=== PATIENT | female | born 1985 | race Caucasian/White ===

== ENCOUNTER → 2017-09-28 | Outpatient (CLI) | payer BC, OTHER ==
[~2017-09-28] MED LIST: ALBUTEROL INHAL17 GM IH; AMBIEN 5 MG TABL5 M1 PO; ATIVAN1 MG PO; BELBUCA150 MCG BUCCAL; BENZTROPINE MES1 MG PO; BUPRENORPHINE HC2 MG SL; BUTORPHANOL; BUTRANS1 EAC1 TD; BUTRANS1 EAC1 TRANSDERM; CARISOPRODOL 3350 MG PO; CELEXA 20 MG TA20 MG PO; CLONAZEPAM 1 MG1 M1 PO; DULCOLAX STOOL100 M1 PO; FETZIMA20 MG PO; FLEXERIL PO; LINZESS145 MCG PO; MACROBID 100 M100 M1 PO; MAGNESIUM400 MG PO; MIGRANAL1 ML NS; MIRALAX17 GM PO; NOHOMEMEDICATIONS; NORCO 5-325 TA1 EACH PO; PERCOCET 5-3251 EACH PO; PRENATAL TABLE1 EACH PO; PROPRANOLOL 1010 M1 PO; PROZAC PO; PROZAC20 MG PO; PROZAC40 MG PO; RELPAX40 MG PO; RIZATRIPTAN5 MG PO; ROBAXIN500 MG PO; SAVELLA50 MG PO; SOMA250 MG PO; SYNTHROID150 MCG PO; TOPAMAX 100 MG100 MG NG; TRAMADOL 50 MG50 MG PO; TREXIMET 85-501 EACH PO; ZANAFLEX4 M1 PO; ZANAFLEX4 MG PO; ZANAFLEX6 MG PO; ZONISAMIDE 100100 M1 PO; [UNRECOGNIZED DRUG - REMARK]
--- NOTE | 2017-10-13 07:28 | PAINCON ---
[address] [address] PAIN MANAGEMENT CONSULTATION Name: GENESIS ARRIAZA Room: [facility] BETI Woodruff#: [id number] Admission: 09/28/17 Attend Phys: Juni Chatman DO Discharge: Date of : 89 Report #: [id number] THIS REPORT FOR: //name// CC: Nuzhat Chatman DATE OF SERVICE: 09/28/2017 CHIEF COMPLAINT: Headache pain, generalized body pain. HISTORY OF PRESENT ILLNESS: As you know, the patient is a 32-year-old female who returns today in followup visit with continued migraine headache pain and generalized body pain due to fibromyalgia. The patient and I have had discussions in the past about treatment options for her symptoms. We have placed the patient on a Butrans patch, which is the most effective and most appropriate treatment option for the patient's generalized pain and headache pain. We have been able to reduce the patient's headache pain to just infrequently with the Butrans patch. She returns today in followup visit reporting pain score of 4/10. She states that she is beginning to experience some generalized weakness that is subjective in nature. She indicates pain is well controlled with the Butrans, 80% improvement in overall pain. From a generalized body pain standpoint, she is only receiving 30% improvement. ALLERGIES: COMPAZINE, NONSTEROIDAL ANTI-INFLAMMATORIES. CURRENT MEDICATIONS: Butrans 10 mcg q. week, buprenorphine 2 mg 1 tab sublingual twice a day as needed for headache pain, clonazepam 1 mg p.o. at bedtime, levothyroxine 125 mcg per day, Savella 50 mg twice a day, vitamin 1 tab per day, Prozac 40 mg per day. SOCIAL HISTORY: The patient denies tobacco, alcohol, IV or illicit drug use. She is accompanied by her young child. IMAGING: No new imaging available. PHYSICAL EXAMINATION: VITAL SIGNS: Blood pressure 117/77, pulse 84, respiratory rate 16, unlabored. The patient is 98% on room air, current temperature 98.1 degrees Fahrenheit, height 5 feet 7 inches tall, weight 198.4 pounds, BMI calculated 31.1. GENERAL: Well-developed, well-nourished, well-hydrated 32-year-old female. She appears her stated age. She is placing current pain score at 4/10. HEENT: Normocephalic, atraumatic. Pupils equal, round, reactive to light. Extraocular muscles are intact. EXTREMITIES: Show no clubbing, no cyanosis, no edema. MUSCULOSKELETAL: The patient has 16 of 18 [place] [address] PAIN MANAGEMENT CONSULTATION Name: GENESIS ARRIAZA [id number] Admission: 09/28/17 Attend Phys: Juni Chatman DO Discharge: Date of : 87 Report #: [id number] myofascial pain syndrome such as fibromyalgia. She reports no pain with standing from a seated position. She has a normal range of motion of the upper and lower extremities. ASSESSMENT: 1. Chronic migraine headaches. 2. Fibromyalgia. 3. Chronic intractable pain. PLAN: 1. The patient returns today in followup visit reporting generalized weakness that is perception only in nature. I was unable to elicit any weakness in the upper extremities or lower extremities. Her strength is equal, symmetrical and 5/5. I believe her symptoms are related to her generalized pain syndrome, fibromyalgia and this is not an atypical finding for fibromyalgia patients. There is likely also some depression the patient has been experiencing, which compounds the problem. We have discussed this with the patient today. It is noted that the patient has been restarted on Prozac. This may need to be escalated further to assist in this condition of depression, generalized depression and fibromyalgia pain. 2. In regards to the patient's migraine headache pain, the Butrans patch appears to be working well. We utilized the patch as it provides good benefit long-term, 24-hour day, 7-day a week coverage. This also has low side effect profile of respiratory depression, dysphoric effects as well as constipation issues. She is doing very well on the medication, reporting 80% improvement in overall headache pain. Recommend continuation of the Butrans patch for this visit. 3. The patient will submit random drug screen today. This is part of our monitoring program. The patient has signed an opioid contract with [facility] for the continuation of medication. As part of our monitoring, we have the patients undergo random drug screens. The patient will submit to this drug screening today. She reports no potential aberrancy on today's test. The patient can contact our clinic in approximately 2 weeks for the findings of the exam. If aberrancy is noted, the patient will recontact to return to discuss the findings. 4. The patient was provided prescription of Butrans 10 mcg patch 1 patch per week. She was given #4 patches releases of today, 4 weeks from today, 8 weeks from today. 5. The patient was provided a prescription of buprenorphine 2 mg dose 1 tab p.o. b.i.d., given #60, 2 refills. 6. The patient was provided a refill prescription of clonazepam 1 mg dose 1 tab p.o. at bedtime, #30, 2 refills. I did advise the patient that clonazepam is not a pain medication. This will need to be provided through her PCP. This was added specifically for issues of insomnia. When we initially saw the patient, this is not a medication that we will continue [place] [address] PAIN MANAGEMENT CONSULTATION Name: GENESIS ARRIAZA Room: [facility] BETI Kacy#: [id number] Admission: 09/28/17 Attend Phys: Juni Chatman DO Discharge: Date of : 89 Report #: [id number] will need to be provided through her psychiatrist, sleep specialist or her PCP. 7. We will see the patient back in followup visit in 3 months. <ELECTRONICALLY SIGNED> By: Juni Chatman DO 10/13/17 0728 [id number] Chatman DO /nt
== END ==
LOC: M.PC 00:55
DX: G43.909 Migraine, unspecified, not intractable, without status migrainosus (principal); M79.7 Fibromyalgia; G89.29 Other chronic pain

== ENCOUNTER → 2017-11-03 | Outpatient (CLI) | payer BC, OTHER ==
--- NOTE | 2017-11-11 14:44 | PAINCON ---
[address] [address] PAIN MANAGEMENT CONSULTATION Name: GENESIS ARRIAZA Room: [facility] BETI Kacy#: [id number] Admission: 11/03/17 Attend Phys: Sandoval Cisneros MD Discharge: Date of : 89 Report #: [id number] THIS REPORT FOR: //name// CC: Nuzhat Cisneros DATE OF SERVICE: 11/03/2017 FOLLOWUP HISTORY: Continued headache pain and I would like to have my medications renewed. HISTORY: The patient is a 32-year-old female who has been followed in the Pain Clinic since 07/[address] Juni Chatman. She returns today for renewal of her medications. She has been told by her insurance company that they denied continued use of Butrans. As you recall, she suffers from significant headaches. Has found that the Butrans medication has been about 80% helpful in curving these headaches. She has been on this medication for about the last 3 weeks. She has had some discomfort in the low back, knees and feet. She has been experiencing some burning sensation in her feet. Has felt a bruising sensation somewhat globally. Rates her pain as a 6/10. This is my first visit with the patient. As you are aware, she has had some problem with migraine type headaches for quite a number of years. She has been evaluated by numerous specialists to deal with her chronic headache pain. They have included Neurology, Endocrinology, HEALTH INFORMATION SYSTEMS TECHNICIAN physicians, none of which have found a significant etiology for her headache. She has had Botox injections, trigger point injections, tried the triptans and a number of antidepressants. Neurology has performed EKG, which did show some pseudoseizure activity, but this apparently was after her symptoms had begun. She notes that the pain is exacerbated with stress, use of alcohol and jaw clenching activities. Continue to describe her pain and discomfort as continuous, constant and was generally a 5-6/10 most of the time. She was placed on Butrans and noted improvement in her headache pains. Things are going reasonably well until her insurance company recently told her that Butrans was not an option. She would like to consider other options to continue to help with pain control. ALLERGIES: COMPAZINE, ERYTHROMYCIN, NONSTEROIDAL ANTI-INFLAMMATORY MEDICATIONS. CURRENT MEDICATIONS: Buprenorphine patch 1 weekly 10 mcg transdermal, clonazepam 1 mg daily, Prozac 20 mg total of 40 mg daily, Synthroid 1.25 mcg daily, milnacipran/Savella 50 mg b.i.d., and vitamins. PAST MEDICAL HISTORY: [place] [address] PAIN MANAGEMENT CONSULTATION Name: GENESIS ARRIAZA [facility] [id number] Admission: 11/03/17 Attend Phys: Sandoval Cisneros MD Discharge: Date of : 87 Report #: [id number] 1. Pseudoseizures 2. Asthma. 3. Multiple emotional problems. 4. Migraine headaches. PAST SURGICAL HISTORY: Shoulder surgery in 2013. SOCIAL HISTORY: Denies use of tobacco. Denies use of alcoholic beverages. Denies use of IV or illicit drugs. The patient states that she is a nurse. REVIEW OF SYSTEMS: Fatigue, weakness, chronic headaches, asthma, pseudoseizure activity, numbness and tingling, head injury, depression, insomnia. PAIN CLINIC ASSESSMENT: 1. The patient is not being treated for osteoarthritis or rheumatoid arthritis. Height 5 feet 7 inches, weight 188 pounds, BMI is 29. 2. VITAL SIGNS: Blood pressure 142/75, heart rate 75, respiratory rate 16, room air saturation 92%, and temperature 98.1. Pain intensity rated as 6/10. 3. Fall risk. The patient has not fallen in the last 3 months. 4. Blood thinners. The patient is not on a blood thinning medication. 5. Hypertension. The patient is not being treated for hypertension. 6. Pain impact score 32/70. 7. Functional assessment tool. 8. Recreational drugs. The patient denies use of recreational drugs. 9. Tobacco. The patient denies use of tobacco. 10. Alcohol. The patient does not use alcohol on a regular basis. PHYSICAL EXAMINATION: GENERAL: The patient is a well-developed white female, appears in no distress. APPEARANCE: Appears her stated age. ORIENTATION: The patient is alert and oriented x 3. AFFECT: Affect appears appropriate. HEENT: Normocephalic and atraumatic with extraocular eye muscles intact. No reasonable hearing. No nasal complaints. Buccal membranes moist. NECK: Without any JVD or adenopathy. LUNGS: Clear to auscultation. HEART: Regular rate. ABDOMEN: Nontender. MUSCULOSKELETAL: Normal alignment without significant scoliosis, kyphosis, or lordosis. Gait is within normal limits. The patient does complain of some low back pain and discomfort with paraspinous muscles discomfort. Muscles in the upper extremities are judged to be 5/5 without complaints of neuromuscular deficits or radicular components. Lower extremity muscle strength is judged to be 5/5 in the lower extremities without significant complaints of neurological deficits. The patient complains of some discomfort in the knees. Feels that there is a [place] [address] PAIN MANAGEMENT CONSULTATION Name: GENESIS ARRIAZA [facility] [id number] Admission: 11/03/17 Attend Phys: Sandoval Cisneros MD Discharge: Date of : 89 Report #: [id number] IMPRESSION: 1. Chronic migraine headaches. 2. Fibromyalgia. 3. Chronic intractable pain. RECOMMENDATION: The patient states that her insurance company has indicated Butrans is no longer an option that she should try their formulary option, which is Belbuca. We spoke with Dr. Chatman. He has known the patient best. We will try Belbuca 10 mcg applied to the skin every 7 days and note its efficacy. She will call us if she has any problems with this medication. We have reviewed the patient's past history. We are aware that she has tried multiple options to help curb her chronic pain involving her headaches as well as some fibromyalgia. She has tried treatment with Botox, other modalities, endocrinologic evaluation, has seen a number of physicians in private practice here in [place] and has continued to have some headache problems. Dr. Chatman had suggested the possibility of being evaluated by the [facility] in [place] or the [facility]. It appears that the patient has been doing reasonably well on her current regimen. Hopefully, the change in her medications, which is required by her insurance company will not worsen her pain condition. She will try the new pain medication. Hopefully, she will find this medication is equally as effective if not more effective. She will call us if she has any concerns in regards to this new medication. We would like to thank you for letting us participate in her care. We hope she continues to improve. <ELECTRONICALLY SIGNED> By: Sandoval Cisneros MD 11/11/17 1444 [id number] 21N. Christopher Cisneros MD /nt
== END ==
LOC: M.PC 01:48
DX: G43.909 Migraine, unspecified, not intractable, without status migrainosus (principal); G89.4 Chronic pain syndrome; M79.7 Fibromyalgia

== ENCOUNTER → 2017-12-22 | Outpatient (CLI) | payer BC, OTHER ==
--- NOTE | 2017-12-30 08:18 | PAINCON ---
[place] [address] PAIN MANAGEMENT CONSULTATION Name: GENESIS ARRIAZA Room: [facility] OrquideaJennifer#: [id number] Admission: 12/22/17 Attend Phys: Sandoval Cisneros MD Discharge: Date of : 87 Report #: [id number] THIS REPORT FOR: //name// CC: YENIFER Ashraf DATE OF SERVICE: 12/22/2017 FOLLOWUP COMPLAINT: "Here for medication renewal. The Belbuca medicine caused me to be nauseated, vomit, diarrhea, and 10 pounds weight loss." FOLLOWUP HISTORY: The patient is a 32-year-old female who has been followed in the pain clinic because of chronic migraine headaches. She has used buprenorphine sublingual tablets 2 mg 1 p.o. b.i.d. She found that this medication was quite helpful. Her insurance company required use of Belbuca medication instead. She has been unable to tolerate this medication. She has been experiencing nausea and vomiting, muscle cramps, and diarrhea. In spite of trying this medication for the last month, she finds that it is intolerable. She continues to note low back pain, knee pain, as well as pain in her feet. She does not feel that the Belbuca medication has been efficacious. She would like to resume the use of buprenorphine 2 mg sublingual tabs. ALLERGIES: COMPAZINE, ERYTHROMYCIN, NONSTEROIDAL ANTI-INFLAMMATORY medications. CURRENT MEDICATIONS: Clonazepam 1 mg daily, Prozac 20 mg total of 40 mg daily, Synthroid 1.25 mcg daily, milnacipran/Savella 50 mg b.i.d., vitamins, Belbuca 150 mcg sublingual q. 12 hours p.r.n. pain. PAIN CLINIC ASSESSMENT: 1. The patient is not being treated for osteoarthritis or rheumatoid arthritis. 2. Height 5 feet 7 inches, weight 178 pounds, down 10 pounds from 188 pounds at the last visit. BMI is 27.9. 3. Vital signs: Blood pressure 122/67, heart rate 80, respiratory rate 16, room air saturation 98%, temperature 97.6. 4. Pain intensity: Pain intensity is rated as 6/10. 5. Fall risk: The patient has not fallen in the last 3 months. 6. Blood thinner. The patient is not on a blood thinner. 7. Hypertension. The patient is not being treated for hypertension. 8. Pain impact score: 32/70 showing moderate problems with pain with activities of daily living. 9. Functional assessment tool. 10. Recreational drugs: The patient denies use of recreational drugs. 11. Tobacco: The patient denies use of tobacco. 12. Alcohol: The patient denies use of alcoholic [place] [address] PAIN MANAGEMENT CONSULTATION Name: GENESIS ARRIAZA Room: [facility]#: [id number] Admission: 12/22/17 Attend Phys: Sandoval Cisneros MD Discharge: Date of : 87 Report #: [id number] PHYSICAL EXAMINATION: GENERAL: The patient is a well-developed white female. She appears her stated age. She is not in distress. She is alert and oriented x 3. Affect is appropriate. Speech is fluent. She has her 6-month-old baby with her. HEENT: Normocephalic, atraumatic. Extraocular eye muscles intact. Normal hearing. Nasal mucosa moist. Sclerae nonicteric. NECK: Without JVD or adenopathy. Good range of motion. LUNGS: Clear to auscultation without rales or rhonchi. HEART: Regular rate, normal S1, S2. ABDOMEN: Nontender. MUSCULOSKELETAL: Normal alignment without significant scoliosis, kyphosis, or lordosis. Gait is within normal limits. The patient does complain of some low back pain and discomfort in the paraspinous muscle areas. Muscles in the upper extremities are judged to be 5/5 without complaint or neuromuscular deficits. Lower extremity muscle strength is judged to be 5/5 in lower extremities without significant complaints or neurologic deficits. The patient complains of some discomfort in her knees. She feels that there is a burning component in her feet. ASSESSMENT: 1. Chronic migraine headaches. 2. Fibromyalgia. 3. Chronic intractable pain. RECOMMENDATIONS: We discussed the options with the patient. She tried the option provided by her insurance company Belbuca 150 mcg sublingual q. 12 hours. The patient found that this medication was quite problematic. She experienced nausea, vomiting, cramping of muscles, diarrhea, and problems with sleeping. She has lost 10 pounds weight as a result of this medication. She feels that the previous medication of buprenorphine 2 mg sublingual was much more efficacious. She would like to resume this medication. She has found the other medication intolerable. We will rewrite a script for buprenorphine 2 mg sublingual b.i.d. to help control her pain. She will call us if she has any problems with her medications. We would like to thank you for letting us participate in her care. We hope she continues to improve.. <ELECTRONICALLY SIGNED> By: Sandoval Cisneros MD 12/30/17 0818 1422 [id number]. MD JARAD Rojas
== END ==
LOC: M.PC 02:02
DX: G43.809 Other migraine, not intractable, without status migrainosus (principal); M79.7 Fibromyalgia; G89.4 Chronic pain syndrome; I10 Essential (primary) hypertension

== ENCOUNTER → 2018-01-19 | Outpatient (CLI) | payer BC, OTHER ==
--- NOTE | 2018-02-10 14:05 | PAINCON ---
[address] [address] PAIN MANAGEMENT CONSULTATION Name: GENESIS ARRIAZA Room: [facility] MtJenniferYuridiaJennifer#: [id number] Admission: 01/19/18 Attend Phys: Sandoval Cisneros MD Discharge: Date of : 87 Report #: [id number] THIS REPORT FOR: //name// CC: Nuzhat Cisneros DATE OF SERVICE: 01/19/2018 FOLLOWUP COMPLAINT: Pain in the low back, knees, feet and hips. FOLLOWUP HISTORY: The patient is a 33-year-old female who has been followed in the Pain Clinic because of chronic migraine headaches. She also has had some problems with her low back and hips. She rates her pain as a 6/10 at this juncture. She was provided Medrol Dosepak since we saw her last. She has taken that but still continues to have some pain. She has been seen in the Emergency Room; she was seen on 01/10/2018. She stated that some x-rays were performed. [place] to be muscle strain or flare-up of scoliosis. The patient was provided with some muscle relaxants and Naprosyn. She notes that activities, cold temperatures and walking can exacerbate her discomfort. Pain improves with rest, heat, cold, and stretching. ALLERGIES: COMPAZINE, ERYTHROMYCIN, HIGH DOSES OF NON-STEROIDAL ANTI-INFLAMMATORY MEDICATIONS. CURRENT MEDICATIONS: Buprenorphine 2 mg sublingual t.i.d., clonazepam 1 mg, Flexeril 10 mg t.i.d., levothyroxine 0.125 mg, vitamins. PAIN CLINIC ASSESSMENT: 1. The patient is not being treated for osteoarthritis or rheumatoid arthritis. 2. Height 5 feet 7 inches, weight 180 pounds, BMI is 28.1. 3. Vital signs: Blood pressure 106/65, heart rate 63, respiratory rate 18, room air saturation 98%, temperature 98. 4. Pain intensity: Rated as 6/10. 5. Fall risk: The patient has not fallen in the last 3 months. 6. Blood thinner: The patient is not on a blood thinner. 7. Hypertension. The patient is not being treated for hypertension. 8. Pain impact score 32/70, showing moderate problems with pain involving activities of daily living. 9. Functional assessment tool. 10. Recreational drug use: The patient denies use of recreational drugs. 11. Tobacco: The patient denies use of tobacco. 12. Alcohol: The patient denies use of alcoholic beverages on a regular basis. PHYSICAL EXAMINATION: GENERAL: The patient is a well-developed, well-nourished white female, [place] [address] PAIN MANAGEMENT CONSULTATION Name: GENESIS ARRIAZA [facility] [id number] Admission: 01/19/18 Attend Phys: Sandoval Cisneros MD Discharge: Date of : 89 Report #: [id number] her stated age. She is alert and oriented x 3. She has her infant with her. Affect is appropriate. Speech is fluent. HEENT: Normocephalic, atraumatic. Extraocular eye muscles intact. Sclerae nonicteric. Hearing is within normal limits. NECK: Without JVD or adenopathy. Good range of motion. LUNGS: Clear to auscultation, without rales or rhonchi. HEART: Regular rate. Normal S1, S2. ABDOMEN: Nontender, without organomegaly. MUSCULOSKELETAL: Normal alignment, without significant scoliosis, kyphosis, or lordosis. The patient's gait is within normal limits. She does complain of some pain and discomfort in the lower portion of her back, in the paraspinous muscles area. Muscle strength in the upper extremities judged to be 5/5 as well as in the lower extremities 5/5, without significant neurological deficits. IMPRESSION: 1. Chronic migraine headaches. 2. Fibromyalgia. 3. Chronic intractable pain. RECOMMENDATIONS: We discussed treatment options with the patient. At this juncture, we will increase the patient's buprenorphine from 2 mg b.i.d. to 3 mg sublingual. Also, the patient has been given a script for Flexeril two tablets 10 mg in the a.m., one tablet midday, one tablet at bedtime, and clonazepam 1 mg p.o. at bedtime. The patient will continue with these medications. Hopefully, she will note a decrease in pain and discomfort. She will follow up in the future as needed. We would like to thank you for letting us participate in her care. We hope she continues to improve. <ELECTRONICALLY SIGNED> By: Sandoval Cisneros MD 02/10/18 1405 1307 1331N. Christopher Cisneros MD /kamaljit
== END ==
LOC: M.PC 02:08
DX: G43.709 Chronic migraine without aura, not intractable, without status migrainosus (principal); G89.4 Chronic pain syndrome; M79.7 Fibromyalgia

== ENCOUNTER → 2018-02-16 | Outpatient (CLI) | payer BC, OTHER ==
--- NOTE | 2018-02-25 15:18 | PAINCON ---
[address] [address] PAIN MANAGEMENT CONSULTATION Name: GENESIS ARRIAZA Room: [facility] MtCarlito#: [id number] Admission: 02/16/18 Attend Phys: Sandoval Cisneros MD Discharge: Date of : 89 Report #: [id number] THIS REPORT FOR: //name// CC: Nuzhat Cisneros DATE OF SERVICE: 02/16/2018 FOLLOWUP COMPLAINT: Medicine is working okay. FOLLOWUP HISTORY: The patient is a 33-year-old female who has been followed in the pain clinic. She has chronic pain involving her low back, knees, feet and hips. This has been problematic for years. She finds that her medications are working reasonably well. She does not have any problems with the medications. Overall, she thinks that things are working reasonably well. Has had no new problems. Feels that the Flexeril continues to be helpful. Has a young baby. Things are going reasonably well from that vantage point as well. As you recall, she has had some problems with chronic migraine headaches. Rates her pain as a 6/10 today. The activities that exacerbate her pain or cold weather, walking, bending holding the car seat. Things that improve with her use of her medications heat/cold, rest as well as stretching exercises. ALLERGIES: COMPAZINE, ERYTHROMYCIN, HIGH DOSES OF NONSTEROIDAL ANTI-INFLAMMATORY MEDICATIONS. MEDICATIONS: Buprenorphine 2 mg sublingual t.i.d., clonazepam 1 mg, Flexeril 10 mg t.i.d., levothyroxine 0.125 mg, vitamins. PAIN CLINIC ASSESSMENT: 1. The patient is not being treated for rheumatoid or osteoarthritis. 2. Height 5 feet 7 inches, weight 176 pounds, BMI is 27.7. 3. Vital Signs: Blood pressure is 93/53, heart rate 77, respiratory rate 16, room air saturation is 97, temperature 98.2. 4. Pain intensity 02/07. 5. Fall risk. The patient has not fallen in the last 3 months. 6. Blood thinner. The patient is not on a blood thinning medication. 7. Hypertension. The patient has not been treated for hypertension. 8. Pain impact score 32/70 showing moderate problems with pain involving activities of daily living. 9. Functional assessment tool. 10. Recreational drug use. The patient denies use of recreational drugs. 11. Tobacco: The patient denies use of tobacco. 12. Alcohol: The patient denies use of alcoholic beverages on a regular basis. PHYSICAL EXAMINATION: [place] [address] PAIN MANAGEMENT CONSULTATION Name: GENESIS ARRIAZA Brenda Room: [facility]#: [id number] Admission: 02/16/18 Attend Phys: Sandoval Cisneros MD Discharge: Date of : 89 Report #: [id number] GENERAL: The patient is a well-developed white female, appears her stated age. She is alert and oriented x 3. Her infant is in with her. Good interaction is noted. Affect is appropriate. Speech is fluent. HEENT: Normocephalic, atraumatic. Extraocular eye muscles intact. Sclerae nonicteric. Hearing within normal limits. NECK: Without JVD or adenopathy. Good range of motion. HEART: Regular rate. S1, S2. ABDOMEN: Nontender, without organomegaly. MUSCULOSKELETAL: Without significant scoliosis, kyphosis or lordosis. The patient's gait is within normal limits. Does complain of some pain and discomfort in the lower back in the paraspinous areas. Muscle strength in the upper body appears to be 5/5 as well as in the lower extremity 5/5 without neurologic deficits. IMPRESSION: 1. Chronic migraine headaches. 2. Fibromyalgia. 3. Chronic intractable pain. 4. Sore mouth secondary to laser surgery on her gums. RECOMMENDATIONS: We discussed treatment options with the patient and her use of medications. Overall, things seemed to be going reasonably well. She has had some increased pain and discomfort secondary to laser surgery on her gums. She feels that her medications are working well. She would like to have been continued. Keeps her medications in a guarded area. Does not have any problems with her ability to function and care for her baby. We would like to thank you for letting us participate in her care. A script for her medications of clonazepam 1 mg, buprenorphine 2 mg sublingual t.i.d. has been written as well as continued use of Flexeril 10 mg 1 p.o. midday and bedtime and 2 tablets q.a.m. <ELECTRONICALLY SIGNED> By: Sandoval Cisneros MD 02/25/18 1518 1611 2002Sandoval Cisneros MD /WENDY
== END ==
LOC: M.PC 02:47
DX: G43.909 Migraine, unspecified, not intractable, without status migrainosus (principal); M79.7 Fibromyalgia; G89.4 Chronic pain syndrome

== ENCOUNTER 2018-03-15 14:54 | Emergency (ER) | payer BC, OTHER ==
[~2018-03-15] VITALS: Ht 170.2 cm; Wt 77.1 kg
[~2018-03-15 14:54] MED LIST changes: -DULCOLAX STOOL100 M1 PO; -LINZESS145 MCG PO; -MAGNESIUM400 MG PO; -ROBAXIN500 MG PO; -ZANAFLEX4 MG PO
[2018-03-15] MEDS ORDERED: ROBAXIN500 MG PO (15:54)
[2018-03-15 16:00] VITALS: BP 122/74
[2018-04-15] MEDS ORDERED: CLONAZEPAM 1 MG1 M1 PO (10:51)
[2018-04-15] MEDS ORDERED: ROBAXIN500 MG PO (10:51)
[2018-04-15] MEDS ORDERED: BUPRENORPHINE HC2 MG SL (10:51)
[2018-04-15] MEDS ORDERED: FLEXERIL PO ×2 (11:16→11:17)
[2018-05-13] MEDS ORDERED: CLONAZEPAM 1 MG1 M1 PO (08:18)
[2018-05-13] MEDS ORDERED: BUPRENORPHINE HC2 MG SL (08:18)
[2018-05-13] MEDS ORDERED: FLEXERIL PO (08:18)
[2018-06-10] MEDS ORDERED: BUPRENORPHINE HC2 MG SL (08:14)
[2018-06-10] MEDS ORDERED: CLONAZEPAM 1 MG1 M1 PO (08:14)
[2018-06-10] MEDS ORDERED: FLEXERIL PO (08:14)
[2018-07-08] MEDS ORDERED: FLEXERIL PO (09:08)
[2018-07-08] MEDS ORDERED: CLONAZEPAM 1 MG1 M1 PO (09:08)
[2018-07-08] MEDS ORDERED: BUPRENORPHINE HC2 MG SL (09:08)
[2018-07-08] MEDS ORDERED: MAGNESIUM400 MG PO (09:55)
[2018-07-08] MEDS ORDERED: DULCOLAX STOOL100 M1 PO ×2 (10:14→10:17)
[2018-07-08] MEDS ORDERED: ZANAFLEX4 MG PO ×2 (10:14→10:17)
[2018-07-08] MEDS ORDERED: MIRALAX17 GM PO ×2 (10:14→10:17)
[2018-07-08] MEDS ORDERED: LINZESS145 MCG PO ×2 (10:22→10:23)
== END 2018-03-15 16:08 | disposition home or self-care (01) ==
LOC: M.ERS 14:54
DX: S46.912A Strain of unspecified muscle, fascia and tendon at shoulder and upper arm level, left arm, initial encounter (principal); G43.909 Migraine, unspecified, not intractable, without status migrainosus; J45.909 Unspecified asthma, uncomplicated; F17.210 Nicotine dependence, cigarettes, uncomplicated; Z88.1 Allergy status to other antibiotic agents; Z88.5 Allergy status to narcotic agent; W01.0XXA Fall on same level from slipping, tripping and stumbling without subsequent striking against object, initial encounter; Y93.89 Activity, other specified; Y92.89 Other specified places as the place of occurrence of the external cause; Y99.8 Other external cause status

== ENCOUNTER → 2018-04-15 | Outpatient (CLI) | payer BC, OTHER ==
[~2018-04-15] MED LIST changes: +DULCOLAX STOOL100 M1 PO; +LINZESS145 MCG PO; +MAGNESIUM400 MG PO; +ROBAXIN500 MG PO; +ZANAFLEX4 MG PO
--- NOTE | 2018-04-16 08:37 | PAINCON ---
[facility] [address] [place] [address] PAIN MANAGEMENT CONSULTATION Name: GENESIS ARRIAZA Room: [facility] URIAH MtCarlito#: [id number] Admission: 04/15/18 Attend Phys: Sandoval Cisneros MD Discharge: Date of : 89 Report #: [id number] THIS REPORT FOR: //name// CC: JAYLYN physician/PCP Nuzhat Cisneros DATE OF SERVICE: 04/15/2018 FOLLOWUP COMPLAINT: "Here for medication renewal. I am having pain in the middle of my back." FOLLOWUP HISTORY: The patient is a 33-year-old female who has been followed in the Pain Clinic because of chronic pain involving her back, knees, feet, and hips. She has noticed some increased pain in her midback area. It is more intense in the area of her bra. Certain activities exacerbate her pain. She states that she has taken a Medrol Dosepak in the past, but still has had some remnants of pain and discomfort, which is problematic. She feels that the pain is a 7/10. She was seen in the Emergency Room at [facility] about 5 weeks ago. She is prescribed some Flexeril, but did not notice a significant improvement and relief from that medication. She feels that the buprenorphine t.i.d. is helpful. She has noted constant problems with constipation. She feels that she has a good bowel movement about once a week. She states that she has been taking a number of medications that have been recommended, which include stool softeners, has used Ex-Lax. At this juncture, she would like to proceed with an injection to the mid portion of her back. These are the areas that are most problematic. She has not had back surgery. She does not note any real changes in her back because of activity. She has not had a trauma to the back. ALLERGIES: COMPAZINE, ERYTHROMYCIN, HIGH DOSES OF NONSTEROIDAL ANTI-INFLAMMATORY MEDICATIONS. CURRENT MEDICATIONS: Buprenorphine 2 mg sublingual t.i.d., clonazepam ____ mg, Flexeril 10 mg t.i.d., levothyroxine 0.125 mg, vitamins. PAIN CLINIC ASSESSMENT: 1. The patient is not being treated for osteoarthritis or rheumatoid arthritis. 2. Height 5 feet 7 inches, weight 177 pounds, BMI is 27.8. 3. Vital signs: Blood pressure 122/58, heart rate 102, respiratory rate 18, room air saturation 98%, temperature 98.4. Pain intensity scale 7/10. 4. Fall risk. The patient has not fallen in the last 3 months. 5. Blood thinner. The patient is not on a blood thinning medication. 6. Hypertension. The patient is not being treated for hypertension. 7. Opioid therapy. The patient receives her medications from one source, the Pain Clinic. 8. [place] [address] PAIN MANAGEMENT CONSULTATION Name: GENESIS ARRIAZA [id number] Admission: 04/15/18 Attend Phys: Sandoval Cisneros MD Discharge: Date of : 87 Report #: [id number] 9. Functional assessment tool. 10. Recreational drug use: The patient denies. 11. Tobacco: The patient denies use of tobacco. 12. Alcohol: Occasional alcohol use. PHYSICAL EXAMINATION: GENERAL: The patient is a well-developed, well-nourished white female. She appears her stated age. She is alert and oriented x 3. She has fluent speech. Affect is appropriate. HEENT: Normocephalic, atraumatic. Extraocular muscles intact. Sclerae nonicteric. Hearing within normal limits. Mucous membranes are moist. NECK: Without JVD or adenopathy. Good range of motion. HEART: Regular rate. S1, S2. ABDOMEN: Nontender. BACK: Has some discomfort in the midback area in the area of the proximally T7/T8 as well as T11/T10. These areas are more problematic and tender to palpation and increased pain is noted with movement. NEUROLOGICAL: Upper extremity muscle strength is judged to be 5/5 for the major muscle groups. Lower body muscle strength is 5/5 without neurological deficits. IMPRESSION: 1. Chronic headache pain with migraines. 2. Fibromyalgia. 3. Myofascial pain. 4. Worsening of back pain. 5. Constipation, chronic. RECOMMENDATIONS: We discussed treatment options with the patient. The patient will be given a trial of Movantik. Hopefully, she would find that this medication will be helpful in decreasing the amount of constipation she is experiencing. The patient would also like to proceed with a trigger point injection in the affected areas in her midback. A renewal of her medications has been written. She will call us if she has any problems with the Movantik. The patient elected to proceed with the injection into the trigger point areas. PROCEDURE NOTE: The patient was taken to the examination area. She is helped on the examination table. The patient sat perpendicular to the table. A chair was placed under her feet. She was leaning forward as though she was going to tie her shoes. Palpation in the area of her bra line, T7-T8 was palpated. This reproduced pain and discomfort. A 25-gauge needle was then advanced into the area of the interspinous ligament area and paraspinous muscles at this level. Total of 10 mL of 0.5% bupivacaine and 40 mg triamcinolone was injected. The patient notices that triggerpoint improved. The patient had T10/T11 palpation reproduced a trigger point. A 25-gauge needle was then advanced into the area of discomfort. In this area, a total of 40 mg triamcinolone and 5 mL of 0.5% bupivacaine was injected. The patient tolerated the [place] [address] PAIN MANAGEMENT CONSULTATION Name: GENESIS ARRIAZA Room: [facility]#: [id number] Admission: 04/15/18 Attend Phys: Sandoval Cisneros MD Discharge: Date of : 87 Report #: [id number] no complications. She remained in the Pain Clinic for appropriate amount of time. She will follow up in the future as needed. We would like to thank you for letting us participate in her care. We hope she continues to improve. <ELECTRONICALLY SIGNED> By: Sandoval Cisneros MD 04/16/18 0837 1159 1659N. Christopher Cisneros MD /nt
== END | disposition home or self-care (01) ==
LOC: M.PC 04:59
DX: M79.1 Myalgia (principal); G43.909 Migraine, unspecified, not intractable, without status migrainosus; G89.29 Other chronic pain; M54.5 Low back pain; K59.09 Other constipation; Z88.8 Allergy status to other drugs, medicaments and biological substances; Z79.899 Other long term (current) drug therapy; Z98.890 Other specified postprocedural states

== ENCOUNTER → 2018-05-13 | Outpatient (CLI) | payer BC, OTHER ==
--- NOTE | 2018-06-14 10:30 | PAINCON ---
[facility] [address] [place] [address] PAIN MANAGEMENT CONSULTATION Name: GENESIS ARRIAZA Room: [facility] MtCarlito#: [id number] Admission: 05/13/18 Attend Phys: Sandoval Cisneros MD Discharge: Date of : 89 Report #: [id number] THIS REPORT FOR: //name// CC: Nuzhat Cisneros DATE OF SERVICE: 05/13/2018 FOLLOWUP HISTORY: Here for medication renewal. The medication is still helping. I am still having constipation. FOLLOWUP HISTORY: The patient is a 33-year-old female who has been followed in the pain clinic because of chronic low back, knee, hip, and foot pain. She was given Movantik. It was felt that the initial use of the Movantik was helpful. She had more normal bowel movement. She did not notice continued bowel movements after that. She is not sure. She has changed her diet somewhat in an effort to promote more easy motility. She would like to try the Movantik medication again. She feels that the Robaxin, Flexeril, clonazepam, and buprenorphine continue to be helpful. She has not had back surgery. Has not noted any change in her back secondary to activity or trauma. ALLERGIES: COMPAZINE, ERYTHROMYCIN, AND HIGH DOSE OF NONSTEROIDAL ANTI-INFLAMMATORY MEDICATION. CURRENT MEDICATIONS: Buprenorphine 2 mg sublingual t.i.d., clonazepam 1 mg at bedtime, Flexeril 10 mg t.i.d., levothyroxine 0.125 mg, and multiple vitamins. PAIN CLINIC ASSESSMENT: 1. The patient is not being treated for osteoarthritis or rheumatoid arthritis. 2. Height 5 feet 7 inches, weight 175 pounds, BMI is 27.8. 3. Vital signs: Blood pressure 109/68, heart rate 96, respiratory rate 16, room air saturation 92, temperature 97.7. 4. Pain intensity 11/07. 5. Opioid therapy. The patient receives her medication from 1 source. 6. Blood thinner. The patient is not on a blood thinning medication. 7. Risk assessment tool. 8. Functional assessment tool. 9. Recreational drug use. The patient denies use of recreational drugs. 10. Tobacco: The patient denies use of tobacco. 11. Alcohol: The patient occasionally uses alcoholic beverages. PHYSICAL EXAMINATION: GENERAL: The patient is well-developed, well-nourished white female. She appears her stated age. She is alert and oriented x 3. [place] [address] PAIN MANAGEMENT CONSULTATION Name: GENESIS ARRIAZA Room: [facility]#: [id number] Admission: 05/13/18 Attend Phys: Sandoval Cisneros MD Discharge: Date of : 89 Report #: [id number] daughter of about 6 months is with her. HEENT: Normocephalic, atraumatic. Extraocular eye muscles intact. Sclerae nonicteric. Mucous membranes are moist. NECK: Without JVD or adenopathy. Good range of motion. HEART: Regular rate. S1, S2. ABDOMEN: Nontender, without organomegaly. BACK: Has some discomfort in the mid back area approximately at the T7/T8 area as well as T10/T11. There is some tenderness to palpation in these areas. NEUROLOGIC: Upper extremity muscle strength is judged to be 5/5 for the major muscle groups. Lower body muscle strength is judged to be 5/5 without deficits. ASSESSMENT: Chronic headaches with migraines, fibromyalgia, myofascial pain, chronic back pain, and chronic constipation. RECOMMENDATIONS: We discussed treatment options with the patient. At this juncture, the patient feels that the Movantik initially was helpful. She ran out. She would like to give another trial of this medication. We will give her additional set of 6 pills. Hopefully, she finds that this medication is helpful. States that she is changing her diet in an effort to promote better GI motility. She would like to continue with her medications and has not had any side effects. She will follow up in the near future. We would like to thank you for letting us participate in her care. Should she find that the Movantik medication is helpful, we will then call in a script to the pharmacy. <ELECTRONICALLY SIGNED> By: Sandoval Cisneros MD 06/14/18 1030 0926 1248N. Christopher Cisneros MD /[facility]
== END ==
LOC: M.PC 03:54
DX: G43.909 Migraine, unspecified, not intractable, without status migrainosus (principal); M79.7 Fibromyalgia; K59.00 Constipation, unspecified; G89.29 Other chronic pain; M54.5 Low back pain; Z79.899 Other long term (current) drug therapy

== ENCOUNTER → 2018-06-10 | Outpatient (CLI) | payer OTHER ==
--- NOTE | 2018-06-14 10:00 | PAINCON ---
[address] [address] PAIN MANAGEMENT CONSULTATION Name: GENESIS ARRIAZA [id number] Admission: 06/10/18 Attend Phys: Sandoval Cisneros MD Discharge: Date of : 89 Report #: [id number] THIS REPORT FOR: //name// CC: Nuzhat Cisneros DATE OF SERVICE: 06/10/2018 PRIMARY CARE PHYSICIAN: Nuzhat Willoughby N.P. FOLLOWUP COMPLAINT: Here for renewal of medication. HISTORY OF PRESENT ILLNESS: The patient is a 33-year-old female who has been followed in the pain clinic because of chronic pain involving her back, hips, knees and foot pain. She finds that use of her medications cause significant amounts of constipation. She did use Movantik. She found that this medication was quite beneficial. States that she has been taking about 8 other medications for bowel movement, which has been significantly reduced with use of Movantik. She continues to have some leg cramps. Rates her pain as a 4/10. Denies any new trauma. Continues to find buprenorphine helpful. Feels overall that she is about 70% improved with use of her medications. ALLERGIES: COMPAZINE, ERYTHROMYCIN, HIGH DOSE OF NONSTEROIDAL ANTI-INFLAMMATORY MEDICATIONS. CURRENT MEDICATIONS: Buprenorphine 2 mg sublingual t.i.d., clonazepam 1 mg at bedtime, Flexeril 10 mg t.i.d., levothyroxine 0.125 mg, multivitamins. PAIN CLINIC ASSESSMENT AND PQRS: 1. The patient is not being treated for osteoarthritis or rheumatoid arthritis. 2. Height 5 feet 7 inches, weight 169 pounds, BMI is 27.0. 3. Vital signs: Blood pressure 110/80, heart rate 102, respiratory rate 16, room air saturation 97%, temperature 98.4. 4. Pain intensity: 4/10. 5. Fall history: The patient has not fallen in the last 3 months. 6. Blood thinner. The patient is not on a blood thinning medication. 7. Hypertension. The patient is not being treated for hypertension. 8. Opioids greater than 6 weeks. The patient gets her medication from one source, the pain clinic. 9. Risk assessment tool. 10. Functional assessment tool. 11. Recreational drug use. The patient denies use of recreational drugs. 12. Alcohol: The patient denies use of alcoholic beverages. PHYSICAL EXAMINATION: [address] [place] [address] PAIN MANAGEMENT CONSULTATION Name: RACHID ARRIAZAMARYANN Gutierrez Room: [facility]#: [id number] Admission: 06/10/18 Attend Phys: Sandoval Cisneros MD Discharge: Date of : 89 Report #: [id number] GENERAL: The patient is a well-developed, well-nourished, white female. Appears her stated age. She is alert and oriented x 3. Her speech is fluent. HEENT: Normocephalic, atraumatic. Extraocular eye muscles intact. Sclerae nonicteric. Mucous membranes are moist. NECK: Without adenopathy or JVD. HEART: Regular rate. S1, S2. ABDOMEN: Nontender, without organomegaly. BACK: With some discomfort in approximately T7/T8 areas as well as some T10/T11 areas. Notes some palpation in this area can increase her discomfort. NEUROLOGIC: Upper extremity muscle strength is judged to be 5/5. Lower extremity muscle strength 5/5 without deficits. ASSESSMENT: 1. Chronic headaches. 2. Fibromyalgia. 3. Myofascial pain. 4. Chronic back pain. 5. Chronic constipation, improve with Movantik. RECOMMENDATIONS: We discussed treatment options with the patient. At this juncture, we will continue with her current medical regimen. The patient finds that the Movantik has been quite beneficial. She is somewhat discombobulated of the cost of medication. It is about $400 a month. At this juncture, she is unable to cover that. She would like to have her medications of clonazepam, buprenorphine and Flexeril renewed. A script for these medications have been written. We would like to thank you for letting us participate in her care. We hope she continues to improve. <ELECTRONICALLY SIGNED> By: Sandoval Cisneros MD 06/14/18 1000 [id number]. Christopher Cisneros MD /[facility]
== END ==
LOC: M.PC 05:16
DX: G89.29 Other chronic pain (principal); R51 Headache; M79.7 Fibromyalgia; K59.09 Other constipation; Z79.899 Other long term (current) drug therapy

== ENCOUNTER → 2018-07-08 | Outpatient (CLI) | payer OTHER ==
--- NOTE | ~2018-07-08 | PAINCON ---
[place] [address] PAIN MANAGEMENT CONSULTATION Name: GENESIS ARRIAZA [facility] [id number] Admission: 07/08/18 Attend Phys: Sandoval Cisneros MD Discharge: Date of : 89 Report #: [id number] THIS REPORT FOR: //name// CC: Nuzhat Cisneros DATE OF SERVICE: 07/08/2018 PRIMARY CARE PHYSICIAN: Nuzhat Willoughby NP FOLLOWUP HISTORY: Here for medications. HISTORY: The patient is a 33-year-old female who has been followed in the pain clinic because of chronic pain involving her back, hips, knees and foot. She continues to have problems with cramping in her back, hips, and knees. She did find that Movantik was helpful in decreasing the amount of problem she is having with constipation. Finds the medication is too expensive at this juncture given her lack of insurance coverage for this medication. Feels that another muscle relaxant other than Flexeril might be helpful. She is not having any complications from her medications. She feels that the Butrans is still helpful. Feels that she is about 80% improvement. ALLERGIES: COMPAZINE, ERYTHROMYCIN, HIGH DOSE NONSTEROIDAL ANTI-INFLAMMATORY MEDICATIONS. CURRENT MEDICATIONS: Buprenorphine 2 mg sublingual t.i.d., clonazepam 1 mg at bedtime, Flexeril 10 mg t.i.d., levothyroxine 0.125 mg, multivitamins. PAIN CLINIC ASSESSMENT/PQRS: 1. The patient is not being treated for osteoarthritis or rheumatoid arthritis. 2. Height 5 feet 7 inches, weight 166 pounds, BMI is 26. 3. Vital signs: Blood pressure 123/74, heart rate 75, respiratory rate 16, room air saturation is 100%, temperature 98.3. 4. Pain intensity. The patient rates her pain as a 2/10. 5. Fall history: The patient has not fallen in the last 3 months. 6. Blood thinner. The patient is not on a blood thinning medication. 7. Hypertension. The patient is not being treated for hypertension. 8. Opioids greater than 6 weeks. The patient receives her medications from one source, the pain clinic. 9. Risk assessment tool, low for opioids. 10. Functional assessment tool. 11. Recreational drug use. The patient denies use of recreational drugs. 12. Alcohol: The patient denies use of alcoholic beverages. PHYSICAL EXAMINATION: GENERAL: The patient is a well-developed, well-[place] [address] PAIN MANAGEMENT CONSULTATION Name: GENESIS ARRIAZA Room: [facility]#: [id number] Admission: 07/08/18 Attend Phys: Sandoval Cisneros MD Discharge: Date of : 89 Report #: [id number] her stated age. She is alert and oriented x 3. Her affect is appropriate. Speech is fluent. HEENT: Normocephalic, atraumatic. Extraocular eye muscles intact. Sclerae nonicteric. Mucous membranes are moist. NECK: Without adenopathy or JVD. HEART: Regular rate. S1, S2. ABDOMEN: Nontender, without organomegaly. Bowel sounds present. BACK: The patient complains of some discomfort in the T7/T8 area as well as some discomfort in T10/T11 areas. NEUROLOGIC: Upper extremity muscle strength is judged to be 5/5 for the major muscle groups. Lower extremity muscle strength is judged to be 5/5 without deficits. ASSESSMENT: 1. Chronic headaches. 2. Fibromyalgia. 3. Myofascial pain. 4. Chronic back pain. 5. Chronic constipation. RECOMMENDATIONS: We discussed treatment options with the patient. At this juncture, we will continue with her clonazepam 1 mg p.o. at bedtime, buprenorphine 2 mg tablet sublingual t.i.d. The patient will also continue with Flexeril 10 mg 2 tablets one tablet at noon and one tablet at bedtime. She will call us if she has any problems with her medications. She will also continue to take and maintain a diet that decreases constipation. I would like to thank you for letting us participate in her care. We hope she continues to improve. By: [id number]. Christopher Cisneros MD /WEND[facility]
== END ==
LOC: M.PC 05:08
DX: R51 Headache (principal); G89.29 Other chronic pain; M79.7 Fibromyalgia; K59.09 Other constipation; Z79.899 Other long term (current) drug therapy

== ENCOUNTER → 2018-08-05 | Outpatient (CLI) | payer OTHER ==
[~2018-08-05] MED LIST changes: +LORZONE750 MG PO; +ZANAFLEX2 MG PO
--- NOTE | 2018-08-06 17:20 | PAINCON ---
[address] [address] PAIN MANAGEMENT CONSULTATION Name: GENESIS ARRIAZA Room: [facility] Kacy#: [id number] Admission: 08/05/18 Attend Phys: Sandoval Cisneros MD Discharge: Date of : 89 Report #: [id number] THIS REPORT FOR: //name// CC: Nuzhat Cisneros DATE OF SERVICE: 08/05/2018 FOLLOWUP HISTORY: The patient is a 33-year-old female who has been followed in the Pain Clinic because of pain involving her back, hips, knees and foot. She continues to note pain and cramping sensation in her back and has pain, cramping, which is most problematic along her hips. Also, has some discomfort in her knees. Feels that the spasticity that the spasms in her leg are quite problematic. She has tried a number of medications in the past. She does not feel that the Flexeril medication is very helpful. Did try tizanidine. Noted that medication made her quite sedate. He is not sure that baclofen was very beneficial in the past. We have discussed the possibility of another medication to help with the spasms. ALLERGIES: COMPAZINE, ERYTHROMYCIN, HIGH DOSE NONSTEROIDAL ANTI-INFLAMMATORY MEDICATIONS. CURRENT MEDICATIONS: Buprenorphine 2 mg sublingual t.i.d., clonazepam 1 mg at bedtime, Flexeril was used and it has been discontinued, levothyroxine 0.125 mg, multivitamins. PAIN CLINIC ASSESSMENT/PQRS: 1. The patient is not being treated for osteoarthritis or rheumatoid arthritis. 2. Height 5 feet 7 inches, weight 159 pounds, BMI is 25. 3. Vital signs: Blood pressure 141/83, heart rate 124, respiratory rate 16, room air saturation is 95%, temperature 97.8. 4. Pain intensity 4/10. 5. Fall history: The patient has not fallen in the last 3 months. 6. Blood thinner. The patient is not on a blood thinning medication. 7. Hypertension. The patient has not been treated for hypertension. 8. Opiates greater than 6 weeks. The patient is getting her medication from [facility], the pain clinic. 9. Risk assessment tool, low for opioid use. 10. Functional assessment tool. 11. Recurrent recreational drug use. The patient denies use of recreational drugs. 12. Alcohol: The patient denies use of alcoholic beverages. PHYSICAL EXAMINATION: GENERAL: The patient is a well-developed, well-nourished white female. Appears her stated age. She is alert and oriented x 3. [place] [address] PAIN MANAGEMENT CONSULTATION Name: GENESIS ARRIAZA Room: [facility]#: [id number] Admission: 08/05/18 Attend Phys: Sandoval Cisneros MD Discharge: Date of : 89 Report #: [id number] Speech is fluent. HEENT: Normocephalic, atraumatic. Extraocular eye muscles intact. Her daughter is with her. NECK: Without adenopathy or JVD. HEART: Regular rate. S1, S2. ABDOMEN: Nontender, without organomegaly. Bowel sounds present. BACK: The patient complains of some pain and discomfort in the T7/T8 area as well as some discomfort in the T10-T11 area. Upper extremity muscle strength is judged to be 5/5 for the major muscle groups. Muscle strength to the lower extremity judged to be 5/5 without deficits. IMPRESSION: 1. Chronic headaches. 2. Fibromyalgia. 3. Myofascial pain. 4. Chronic back pain. 5. Chronic constipation. RECOMMENDATIONS: We discussed treatment options with the patient. At this juncture, she continues to have pain, which is causing cramping on the lateral portion of her thighs and down into her left leg. We will try another muscle relaxant. The patient will take chlorzoxazone 750 mg tablets 1 p.o. t.i.d. and noticed efficacy. She will call us if she has any concerns. She will stop taking the medication if she finds that it is problematic. We would like to thank you for letting us participate in her care. We hope she continues to improve. <ELECTRONICALLY SIGNED> By: Sandoval Cisneros MD 08/06/18 1720 [id number]. Christopher Cisneros MD /nt
== END ==
LOC: M.PC 04:39
DX: R51 Headache (principal); M54.5 Low back pain; G89.29 Other chronic pain; M79.7 Fibromyalgia; K59.09 Other constipation

== ENCOUNTER → 2018-09-02 | Outpatient (CLI) | payer OTHER ==
[~2018-09-02] MED LIST changes: +HYDROCODON-ACE1 EAC7 PO
--- NOTE | ~2018-09-02 | PAINCON ---
[address] [address] PAIN MANAGEMENT CONSULTATION Name: GENESIS ARRIAZA Room: [facility] [place].#: [id number] Admission: Attend Phys: Sandoval Cisneros MD Discharge: Date of : 89 Report #: [id number] THIS REPORT FOR: //name// CC: Nuzhat Cisneros DATE OF SERVICE: 09/02/2018 CHIEF COMPLAINT: Lumbar radicular pain. FOLLOWUP HISTORY: The patient is a 33-year-old female who has been followed in the Pain Clinic in the past because of chronic pain. She returns today indicating that her pain continues to be problematic. She is having pain and discomfort, which is radiating down in the posterior portion of her left leg with numbness and tingling in the L5-S1 distribution. She would like to proceed with an epidural steroid injection today to help quell the pain and discomfort, which she has been experiencing. As you may recall, she has quite a complicated history. She has used a number of medications to help with pain. They are not as effective as she would like for them to have. She states that she had used Vicoprofen in the past and that was helpful. She has been using buprenorphine. This medication has been causing some problems with nausea and vomiting. She was provided with chlorzoxazone form of a muscle relaxant. It was felt that medication was quite problematic and it made her very sleepy. She had used Flexeril in the past and feels that she would like to use that medication over the chlorzoxazone. She has used Butrans in the past. At this juncture, her insurance has denied use of that medication and she is unable to afford it. We have discussed problems with opioid use and their ability to be helpful initially, but can quickly become less beneficial secondary to development of tolerance. We also discussed the possibility of dependence on opioid medications. Overall, she feels that things are going somewhat poorly with her pain control and she would like to try hydrocodone. ALLERGIES: COMPAZINE, ERYTHROMYCIN, HIGH DOSE NONSTEROIDAL ANTI-INFLAMMATORY MEDICATIONS. CURRENT MEDICATIONS: Buprenorphine 2 mg sublingual t.i.d., clonazepam 1 mg at bedtime, Flexeril 1 mg t.i.d., levothyroxine 0.125 mg, multivitamins. PAIN CLINIC ASSESSMENT/PQRS: 1. The patient is not being treated for osteoarthritis or rheumatoid arthritis. 2. Height 5 feet 7 inches, weight 163 pounds, BMI is 25.5. 3. Vital signs: Blood pressure 109/73, heart rate 93, respiratory rate 16, room air saturation 97%, temperature 97.5. 4. Pain score, 8/10. [place] [address] PAIN MANAGEMENT CONSULTATION Name: GENESIS ARRIAZA Room: [facility].#: [id number] Admission: Attend Phys: Sandoval Cisneros MD Discharge: Date of : 89 Report #: [id number] 5. Fall history: The patient has not fallen in the last 3 months. 6. Blood thinner. The patient is not on a blood thinning medication. 7. Hypertension. The patient is not being treated for hypertension. 8. Opioids greater than 6 weeks. The patient receives her medication from [facility]. 9. Risk assessment tool, low for opioid use. 10. Functional assessment tool. 11. Recreational drug use. The patient denies use of recreational drugs. 12. Alcohol: The patient denies use of alcoholic beverages. PHYSICAL EXAMINATION: GENERAL: The patient is a well-developed, well-nourished white female appears her stated age. She is alert and oriented x 3. Affect is appropriate. Speech is fluent. HEENT: Normocephalic, atraumatic. Extraocular eye muscles intact. The patient's approximately 86-sqndg-gmh tall baby is with her. NECK: Without adenopathy or JVD. HEART: Rate regular, S1, S2. ABDOMEN: Nontender, without organomegaly. Bowel sounds present. The patient has pain and discomfort in the T7-T8 area. Also, has some pain and discomfort in the low back area with pain is radiating down into the left L5-S1 dermatomal distribution with numbness and tingling in the lower extremity. Has a perception of decreased muscle strength with sensory deficits. ASSESSMENT: 1. Lumbar radiculopathy, L5-S1 area with pain and discomfort in the left L5-S1 dermatomal distribution. 2. Chronic headaches. 3. Fibromyalgia. 4. Myofascial pain. 5. Chronic back pain. 6. Chronic constipation. RECOMMENDATIONS: We discussed treatment options with the patient. At this juncture, I have had a long talk with the patient about the risks and benefits of opioid medications. We reviewed our entire list of opioid medications and pain options. The patient states that she has used virtually all of them. At this juncture, we will try to have the patient on a low dose, hydrocodone 5 mg 1 p.o. t.i.d. She will also proceed with an epidural steroid injection given that she is having pain and discomfort down in her back, leg on the left side in the L5-S1 distribution with numbness, tingling and a positive straight leg raise. Risks and benefits of the procedure were discussed and they could include but are not limited to infection, worsening of pain, no improvement in pain and the patient elects to proceed. PROCEDURE NOTE: The patient was taken into the examination area. She was [facility] [address] [place] [address] PAIN MANAGEMENT CONSULTATION Name: ARSALANRACHIDGENESIS E Room: [facility].Yur[facility].#: [id number] Admission: Attend Phys: Sandoval Cisneros MD Discharge: Date of : 87 Report #: [id number] placed or assisted in getting on the examination table. Her back was sterilely prepped with a Betadine solution. Fluoroscopy using anterior, posterior as well as lateral viewing were implemented. A 17-gauge Tuohy with loss of resistance technique in the left midline paraspinous approach was undertaken. After appropriate placement, a total of 80 mg Depo-Medrol, 40 mg triamcinolone and 2 mL of 0.25% bupivacaine was injected. The patient tolerated the procedure well. The patient's pain measure was 2 at the time of discharge. She will follow up in the future as needed. We would like to thank you for letting us participate in her care. We hope she continues to improve. By: [id number]. Christopher Cisneros MD /kamaljit
== END | disposition home or self-care (01) ==
LOC: M.PC 08:00
DX: M54.16 Radiculopathy, lumbar region (principal); G89.29 Other chronic pain; M79.7 Fibromyalgia; R51 Headache; K59.09 Other constipation; Z88.8 Allergy status to other drugs, medicaments and biological substances; Z79.899 Other long term (current) drug therapy; Z98.890 Other specified postprocedural states; Z79.891 Long term (current) use of opiate analgesic

== ENCOUNTER → 2018-09-30 | Outpatient (CLI) | payer OTHER ==
--- NOTE | ~2018-09-30 | PAINCON ---
[address] [address] PAIN MANAGEMENT CONSULTATION Name: GENESIS ARRIAZA Room: [facility] Kacy#: [id number] Admission: 09/30/18 Attend Phys: Sandoval Cisneros MD Discharge: Date of : 89 Report #: [id number] THIS REPORT FOR: //name// CC: Nuzhat Cisneros DATE OF SERVICE: 09/30/2018 FOLLOWUP HISTORY: Trigger points in my left back. FOLLOWUP HISTORY: The patient is a 33-year-old female who has been followed in the pain clinic. As you recall, she suffers from chronic pain. She did have some pain and discomfort, which has been radiating down into her left leg. She underwent an epidural steroid injection at the last visit. She has noticed an improvement in the pain, which she was experiencing. It was in the L5-S1 dermatomal distribution. She feels that nerve irritation has improved quite a bit. She is having pain and discomfort up in the upper thoracic area. Notes that certain movements and activities can exacerbate the pain. She would like to proceed with a trigger point injection to the three trigger point areas, which she has noting up in the upper portion of her left back. ALLERGIES: COMPAZINE, ERYTHROMYCIN, HIGH DOSE NONSTEROIDAL ANTI-INFLAMMATORY MEDICATIONS. CURRENT MEDICATIONS: Clonazepam 1 mg, Flexeril 10 mg t.i.d., hydrocodone 5/325 mg one p.o. t.i.d., levothyroxine 150 mcg, Linzess 145 mg, magnesium 400 mg. The patient has used buprenorphine, but feels that the hydrocodone is more effective. PAIN CLINIC ASSESSMENT/PQRS: 1. The patient is not being treated for osteoarthritis or rheumatoid arthritis. 2. Height 5 feet 6 inches, weight 161 pounds, BMI is 25. 3. Vital Signs: Blood pressure is 98/71, heart rate 95, respiratory rate 16, room air saturation 94%. Temperature 98.3. 4. Pain intensity 12/08. 5. Fall history: The patient has not fallen in the last 3 months. 6. Blood thinner. The patient is not on a blood thinning medication. 7. Hypertension. The patient is not being treated for hypertension. 8. Opioids greater than 6 weeks. The patient [facility]. 9. Risk assessment tool, low for opioid use. 10. Functional assessment tool. 11. Recreational drug use. The patient denies use of recreational drugs. 12. Alcohol: The patient denies use of alcoholic beverages. PHYSICAL EXAMINATION: [address] [place] [address] PAIN MANAGEMENT CONSULTATION Name: RACHID ARRIAZAMARYANN Gutierrez Room: [facility]#: [id number] Admission: 09/30/18 Attend Phys: Sandoval Cisneros MD Discharge: Date of : 89 Report #: [id number] GENERAL: The patient is a well-developed, well-nourished white female. Appears her stated age. She is alert and oriented x 3. Her affect is appropriate. Speech is fluent. HEENT: Normocephalic, atraumatic. Extraocular eye muscles intact. Sclerae nonicteric. Mucous membranes are moist. NECK: Without adenopathy or JVD. HEART: Regular rate. ABDOMEN: Nontender. Bowel sounds present. The patient without significant scoliosis, kyphosis or lordosis. The patient has some pain and discomfort of myofascial in nature at approximately T7/T8 as well as T5/T6 and T8/T9 on the left side. Palpation in these areas reproduced a 3 trigger points. ASSESSMENT: 1. Lumbar radiculopathy, L5-S1 improved after last epidural steroid injection. 2. Myofascial pain at 3 levels on the left side. 3. Chronic headaches. 4. Fibromyalgia. 5. Myofascial pain. 6. Chronic back pain. 7. Chronic constipation. RECOMMENDATIONS: We discussed treatment options with the patient. Risks and benefits of use of opioid medications were again reviewed. The patient is aware that opioid medications can be helpful, but can be a problem and become addicted for some patients. She feels that the medication is helpful and enables her to do more. She is not having any problems with the medication of hydrocodone. Feels that has been more effective than the buprenorphine. She is aware that opioid medications can sometimes become less effective over a period of time secondary to tolerance. She has some trigger points in the upper back area. She has had trigger point injection in the past and gleaned benefits from these. She would like to have her trigger point injections today. RECOMMENDATIONS: We discussed treatment options with the patient. We explained the possible complications of trigger point injections, which could include in the thoracic area. Bleeding nerve damage, worsening of pain, no improvement in pain, infection, and the patient elects to proceed. PROCEDURE NOTE: The patient was placed in the sitting position. She has perpendicular to the bed. Her feet were in a chair. Her upper back area at T5-T6, T7-T8, T8 and T9 were palpated. Trigger points were noted in each one of these left paraspinal areas. Her back was sterilely prepped with a chlorhexidine solution. The first trigger point at T5-T6 followed by T7-T8 and T8-T9 were palpated. A 25-gauge needle was injected in each one of these three trigger points separately. A total of 80 mg was injected with a total of 20 mL of 0.5% bupivacaine placing 8 mL in T5-T6, 8 mL in T7-T8 and 3 mL in [place] [address] PAIN MANAGEMENT CONSULTATION Name: GENESIS ARRIAZA Room: [facility]#: [id number] Admission: 09/30/18 Attend Phys: Sandoval Cisneros MD Discharge: Date of : 89 Report #: [id number] patient tolerated the procedure well. She remained in the Pain Clinic for an appropriate amount of time. She will follow up in the future as needed. There was no aspiration during the procedure, did not reveal any bubbles. The patient remained in the pain clinic for an appropriate amount of time. Had no complaints of respiratory problems. She will follow up in the future as needed. We would like to thank you for letting us participate in her care. We hope she continues to improve. By: [id number]. Christopher Cisneros MD /WENDY
== END ==
LOC: M.PC 05:12
DX: M54.16 Radiculopathy, lumbar region (principal); M79.18 Myalgia, other site; R51 Headache; G89.29 Other chronic pain; K59.00 Constipation, unspecified

== ENCOUNTER → 2018-10-28 | Outpatient (CLI) | payer OTHER ==
[~2018-10-28] MED LIST changes: +MEDROLDOSEPACK PO
--- NOTE | ~2018-10-28 | PAINCON ---
[address] [address] PAIN MANAGEMENT CONSULTATION Name: GENESIS ARRIAZA Room: [facility] MtCarlito#: [id number] Admission: 10/28/18 Attend Phys: Sandoval Cisneros MD Discharge: Date of : 89 Report #: [id number] THIS REPORT FOR: //name// CC: Nuzhat Cisneros CHIEF COMPLAINT: Here for medication renewal. HISTORY: The patient is a 33-year-old female who has been followed in the Pain Clinic because of chronic pain. Has history of chronic headache pain as well as lumbar radiculopathy. She has undergone epidural steroid injections and gleaned benefit from this. She has also had trigger point injections and now noted a positive result from that. She has been having pain in her neck and her shoulders. Also, has some pain in the low back. These have been going on for years. Occasionally, she has a flare up. She was given a Medrol Dosepak, which helped previously. Overall, things are going reasonably well and she would like to have her medications renewed today. Rates her pain as a 4/10. Feels that Biofreeze, hydrocodone and her other medications provider about 40% improvement in her pain. Activities such as walking, sitting, standing, moving lifting, bending can be problematic. As you know, she has a young baby, which requires quite a bit of effort. ALLERGIES: COMPAZINE, ERYTHROMYCIN, HIGH DOSE NONSTEROIDAL ANTI-INFLAMMATORY MEDICATION. CURRENT MEDICATIONS: Clonazepam 1 mg, Flexeril 10 mg t.i.d., hydrocodone 5/325 one p.o. t.i.d., levothyroxine 150 mcg, Linzess 145 mg, magnesium 400 mg, buprenorphine has been used in the past. PAIN CLINIC ASSESSMENT/PQRS: 1. The patient is not being treated for osteoarthritis or rheumatoid arthritis. 2. Height 5 feet 6 inches, weight 159 pounds, BMI is 25. 3. Vital signs: Blood pressure 118/77, heart rate 105, respiratory rate 16, room air saturation 99%, temperature 97.8. 4. Pain intensity 12/08. 5. Fall history: The patient has not fallen in the last 3 months. 6. Blood thinner. The patient is not on a blood thinning medication. 7. Hypertension. The patient is not being treated for hypertension. 8. Opioid greater than 6 weeks. The patient is receiving her [facility]. 9. Risk assessment tool, low for opioid use. 10. Functional assessment tool. 11. Recreational drug use. The patient denies use of recreational drugs. 12. Alcohol: The patient denies use of alcoholic beverages. PHYSICAL EXAMINATION: GENERAL: The patient is well-developed, well-n[place] [address] PAIN MANAGEMENT CONSULTATION Name: GENESIS ARRIAZA Room: [facility]#: [id number] Admission: 10/28/18 Attend Phys: Sandoval Cisneros MD Discharge: Date of : 89 Report #: [id number] her stated age. She is alert and oriented x 3. Her affect is appropriate. Speech is slow. HEENT: Normocephalic, atraumatic. Extraocular eye muscles intact. Sclerae is nonicteric. Mucous membranes are moist. NECK: Without adenopathy. The patient has some soreness in her neck and shoulder area. HEART: Regular rate. S1, S2. ABDOMEN: Nontender. Bowel sounds present. The patient without significant scoliosis, kyphosis or lordosis. The patient had had back pain in the T7/T8 area, as well as the T5/T6 area. The trigger points improved since last visit. ASSESSMENT: 1. History of lumbar radicular pain, L5-S1 improved with epidural steroid injection. 2. Myofascial pain trigger points in the mid back area. 3. Chronic headaches. 4. Fibromyalgia. 5. Myofascial pain. 6. Chronic back pain. 7. Chronic constipation. RECOMMENDATIONS: We discussed treatment options with the patient. Risks and benefits of use of opioids were again reviewed. They include possibility of dependency as well as less of efficacy because of development of tolerance. The patient will follow up in the near future. A script for her medications have all been rewritten. Hydrocodone 5/325 one p.o. t.i.d., clonazepam 1 mg p.o. daily, cyclobenzaprine 10 mg p.o. t.i.d. as well as Linzess 145 mcg every day. We would like to thank you for letting us participate in her care. We hope she continues to improve. By: [id number]. Christopher Cisneros MD /kamaljit
== END ==
LOC: M.PC 05:04
DX: M54.16 Radiculopathy, lumbar region (principal); K59.09 Other constipation; G89.29 Other chronic pain; R51 Headache; Z79.891 Long term (current) use of opiate analgesic; Z88.8 Allergy status to other drugs, medicaments and biological substances; Z79.899 Other long term (current) drug therapy

== ENCOUNTER → 2018-11-18 | Outpatient (CLI) | payer OTHER ==
[~2018-11-18] MED LIST changes: +AMITRIPTYLINE H25 M2 PO; +BUPRENORPHINE HC2 MG SUBLING; +ONDANSETRON HCL4 M2 PO
--- NOTE | ~2018-11-18 | PAINCON ---
[address] [address] PAIN MANAGEMENT CONSULTATION Name: GENESIS ARRIAZA Room: [facility] URIAH MtCarlito#: [id number] Admission: 11/18/18 Attend Phys: Sandoval Cisneros MD Discharge: Date of : 89 Report #: [id number] THIS REPORT FOR: //name// CC: Nuzhat Cisneros DATE OF SERVICE: 11/18/2018 CHIEF COMPLAINT: Pain down in the low back down to the legs with numbness and tingling on the left side. FOLLOWUP HISTORY: The patient is a 33-year-old female who has been seen in the pain clinic. As you recall, she has 2 problems. One of chronic headaches. The second is lumbar radicular pain. She has returned today indicating that the lumbar radicular pain is the most problematic. She still has pain in her neck, shoulders and low back area. Notes that the pain in the left low back area is most problematic and rates it as a 9/10. States that the pain is radiating down her low back into the right knee as well as pain on the left leg, which is radiating down into her left foot with numbness. This involves her ankles. She has been using hydrocodone, Flexeril and clonazepam to help. At this juncture, she feels that the pain has risen to a level that is almost impossible to engage in activities of daily living. Cold weather, walking, standing, climbing stairs, sitting, bending and twisting are problematic. Feels that medications, heat as well as stretching is helpful. She continues to get some benefit from the use of Biofreeze. ALLERGIES: COMPAZINE, ERYTHROMYCIN, HIGH DOSE NONSTEROIDAL ANTI-INFLAMMATORY MEDICATIONS. CURRENT MEDICATIONS: Clonazepam 1 mg, Flexeril 10 mg t.i.d., hydrocodone 5/325 one p.o. t.i.d., levothyroxine 150 mcg, Linzess 145 mg, magnesium 400 mg, buprenorphine has been used in the past. PAIN CLINIC ASSESSMENT AND PQRS: 1. The patient is not being treated for osteoarthritis or rheumatoid arthritis. 2. Height 5 feet 6 inches, weight 155 pounds, BMI is 24. 3. Vital signs: Blood pressure 107/78, heart rate 114, respiratory rate 16, room air saturation 99%, temperature 98.1. 4. Pain intensity 9/10. 5. Fall history: The patient has not fallen in the last 3 months. 6. Blood thinner. The patient is not on a blood thinning medication. 7. Hypertension. The patient is not being treated for hypertension. 8. Opioids greater than 6 weeks. The patient receives her medication from one source, the pain clinic. 9. Risk assessment tool, low for opioid use. 10. Functional [place] [address] PAIN MANAGEMENT CONSULTATION Name: ARSALAN,GENESIS Gutierrez Room: [facility]#: [id number] Admission: 11/18/18 Attend Phys: Sandoval Cisneros MD Discharge: Date of : 89 Report #: [id number] 11. Recreational drug use. The patient denies use of recreational drugs. 12. Alcohol: The patient denies use of alcoholic beverages. PHYSICAL EXAMINATION: GENERAL: The patient is a well-developed, well-nourished white female. Appears her stated age. She is alert and oriented x 3. Her affect is appropriate. Speech is fluent. HEENT: Normocephalic, atraumatic. Extraocular eye muscles intact. Sclerae nonicteric. Mucous membranes are moist. NECK: Without adenopathy or JVD. The patient does complain of some pain in her neck and shoulder area. Has some complaint of pain in her low back area. Complains of pain radiating down in the L5-S1 dermatomal distribution on the left with numbness, tingling and sensory changes. IMPRESSION: 1. Lumbar radiculopathy involving the left L5-S1 dermatomal distribution. 2. History of myofascial pain/trigger points in the low back area. 3. Chronic headaches. 4. Fibromyalgia. 5. Myofascial pain. 6. Chronic back pain. 7. Chronic constipation. RECOMMENDATIONS: We discussed treatment options with the patient. The patient feels that another epidural steroid injection would be beneficial. She has undergone it in the past and gleaned benefits from it. Risks and benefits of the procedure, which could include but are not limited to infection, worsening of pain, no improvement in pain, nerve damage, spinal headache, paralysis were discussed with the patient and elects to proceed. PROCEDURE NOTE: The patient was taken to the procedure area. She was assisted in getting on the examination table. Her back was sterilely prepped with a Betadine solution and allowed to dry. Anterior, posterior as well as lateral viewing with fluoroscopy was undertaken. At the left L5-S1 area, a left paracentral approach was undertaken. It was infiltrated with 0.25% bupivacaine using a 25-gauge needle. A 17-gauge Tuohy with loss of resistance technique was used to gain access to the epidural space. There was no CSF, heme or paresthesia. Total of 80 mg of Depo-Medrol, 40 mg of triamcinolone and 2 mL of 0.25% bupivacaine was injected. The patient tolerated the procedure well. There were no complications. She remained in the Pain Clinic for an appropriate amount of time. The patient has been given a script for Elavil 25 mg 1 p.o. at bedtime to help with her pain. She also has elected to stop use of hydrocodone at this juncture. She will proceed to try buprenorphine 2 mg tabs sublingual t.i.d. The patient has also been written for clonazepam 1 mg and Zofran 4 mg 1 p.o. q. 8 hours p.r.n. [place] [address] PAIN MANAGEMENT CONSULTATION Name: GENESIS ARRIAZA Room: [facility]#: [id number] Admission: 11/18/18 Attend Phys: Sandoval Cisneros MD Discharge: Date of : 89 Report #: [id number] We would like to thank you for letting us participate in her care. We hope she continues to improve. By: 1326 [id number]. Christopher Cisneros MD /WENDY
== END | disposition home or self-care (01) ==
LOC: M.PC 04:47
DX: M54.16 Radiculopathy, lumbar region (principal); G89.29 Other chronic pain; M79.7 Fibromyalgia; K59.09 Other constipation; G43.909 Migraine, unspecified, not intractable, without status migrainosus; Z79.891 Long term (current) use of opiate analgesic; Z79.899 Other long term (current) drug therapy; Z88.8 Allergy status to other drugs, medicaments and biological substances; Z98.890 Other specified postprocedural states

== ENCOUNTER → 2018-12-13 | Outpatient (CLI) | payer OTHER ==
[~2018-12-13] MED LIST changes: +AMITRIPTYLINE H25 M3 PO
== END ==
LOC: M.MRI 07:00
DX: M47.26 Other spondylosis with radiculopathy, lumbar region (principal)

== ENCOUNTER → 2018-12-16 | Outpatient (CLI) | payer OTHER ==
--- NOTE | 2018-12-17 13:10 | PAINCON ---
[address] [address] PAIN MANAGEMENT CONSULTATION Name: GENESIS ARRIAZA Room: [facility] Kacy#: [id number] Admission: 12/16/18 Attend Phys: Sandoval Cisneros MD Discharge: Date of : 89 Report #: [id number] THIS REPORT FOR: //name// CC: Nuzhat Cisneros DATE OF SERVICE: 12/16/2018 CHIEF COMPLAINT: Here for medications. The buprenorphine sublingual tablets have caused a significant amount of nausea. I have not taken them in the last 5 days. HISTORY: The patient is a 33-year-old female who has been followed in the Pain Clinic because of chronic pain. She has pain involving her low back. She has had some pain down into her legs. She has undergone epidural steroid injections. She feels that the injections were helpful for about a week. Her pain has resumed. States that she continues to do stretching exercises to improve her condition. Has some problems with nausea associated with the sublingual buprenorphine tablets. She feels that the hydrocodone tablets were more beneficial. She would like to return to their use. The patient states that she flushed the buprenorphine tablets down the toilet because of their ineffectiveness. She has returned to the Pain Clinic for evaluation. She feels that the Elavil medication is helpful. She is sleeping reasonably well. She is not having a significant problem with being hung over the following day. Feels that the Flexeril medications are helpful for the muscle spasms and the Linzess is helpful with her bowels. She continues to do light circuit training and stretching and walking activities. Notes that the pain is worse with sitting and standing. Use of heat, rest and stretching have been beneficial. She has returned and would like to renew her use of hydrocodone. It was more effective with less nausea. ALLERGIES: COMPAZINE, ERYTHROMYCIN, HIGH DOSE NONSTEROIDAL ANTI-INFLAMMATORY MEDICATIONS. CURRENT MEDICATIONS: Clonazepam 1 mg, Flexeril 10 mg t.i.d., hydrocodone 5 mg 1 p.o. t.i.d. in the past, buprenorphine 2 mg sublingual p.r.n., magnesium 400 mg. PAIN CLINIC ASSESSMENT/PQRS: 1. The patient is not being treated for osteoarthritis or rheumatoid arthritis. 2. Height 5 feet 6 inches, weight is 152 pounds, BMI is 23.9. 3. Vital Signs: Blood pressure 117/70, heart rate 82, respiratory rate 16, room air saturation is 100%, and temperature 97.8. 4. Pain intensity 10. 5. Fall history: The patient has not fallen in the last 3 months. 6. Blood thinner: The patient is not on a blood thinning medication. 7. Hypertension. The patient is not [place] [address] PAIN MANAGEMENT CONSULTATION Name: GENESIS ARRIAZA Room: [facility]#: [id number] Admission: 12/16/18 Attend Phys: Sandoval Cisneros MD Discharge: Date of : 89 Report #: [id number] 8. Opioids greater than 6 weeks. The patient receives her medication from one source, the pain clinic. 9. Risk assessment tool, low for opioid use. 10. Functional assessment tool. 11. Recreational drug use. The patient denies use of recreational drugs. 12. Tobacco. 13. Alcohol: The patient denies use of alcohol. PHYSICAL EXAMINATION: GENERAL: The patient is a well-developed, well-nourished white female. Appears her stated age. She is alert and oriented x 3. Her affect is appropriate. Speech is fluent. HEENT: Normocephalic, atraumatic. Extraocular eye muscles are intact. Sclerae nonicteric. Mucous membranes are moist. NECK: Without adenopathy or JVD. ABDOMEN: Nontender. The patient has upper extremity muscle strength 5/5 for the major muscle groups. Lower extremity, the patient has had some pain and discomfort, which radiates down to the lower portion of her back in the L5 dermatomal distribution. Has had some numbness and tingling and sensory changes. IMPRESSION: 1. Lumbar radiculopathy involving L5-S1 dermatomal distribution, treated with an epidural steroid injection. 2. History of myofascial pain/trigger point injection in the past, chronic headaches. 3. Fibromyalgia. 4. Myofascial pain. 5. Chronic back pain. 6. Chronic constipation. RECOMMENDATIONS: We discussed treatment options with the patient. At this juncture, we will continue with the hydrocodone 5 mg 1 p.o. t.i.d. She feels that this medication was better than the buprenorphine. She has had less nausea and vomiting. We will continue with her Linzess to help with the bowel, constipation problem. We have written a script for clonazepam. The patient will take amitriptyline 2 tablets 25 mg at bedtime about 6:00 p.m. at night. Hopefully, this will be helpful with her pain and not cause over feeling of being hung over. The patient has been given a script for hydrocodone 5 mg 1 p.o. t.i.d. Again, we discussed the patient's MRI findings in detail with her. She was also counseled regarding the need to return opioid medication should she find that they are not efficacious. Otherwise, one would consider that they may be being misdirected. She states that she only had a few left and poured them down the toilet. She was not aware of [place] [address] PAIN MANAGEMENT CONSULTATION Name: GENESIS ARRIAZA Room: [facility]#: [id number] Admission: 12/16/18 Attend Phys: Sandoval Cisneros MD Discharge: Date of : 89 Report #: [id number] We would like to thank you for letting us participate in her care. We hope she continues to improve. <ELECTRONICALLY SIGNED> By: Sandoval Cisneros MD 12/17/18 1310 1012 1232N. Christopher Cisneros MD /nt
== END ==
LOC: M.PC 05:20
DX: G89.29 Other chronic pain (principal); M54.17 Radiculopathy, lumbosacral region; M79.7 Fibromyalgia; K59.00 Constipation, unspecified; Z88.8 Allergy status to other drugs, medicaments and biological substances; Z88.1 Allergy status to other antibiotic agents; Z79.899 Other long term (current) drug therapy; Z79.891 Long term (current) use of opiate analgesic

== ENCOUNTER → 2019-02-03 | Outpatient (CLI) | payer OTHER ==
--- NOTE | ~2019-02-03 | PAINCON ---
[address] [address] PAIN MANAGEMENT CONSULTATION Name: GENESIS ARRIAZA Room: [facility] Kacy#: [id number] Admission: 02/03/19 Attend Phys: Sandoval Cisneros MD Discharge: Date of : 89 Report #: [id number] THIS REPORT FOR: //name// CC: Nuzhat Cisneros DATE OF SERVICE: 02/03/2019 CHIEF COMPLAINT: "Low back pain and some pain in my mouth because of surgery." HISTORY: The patient is a 34-year-old female who has been seen in the Pain Clinic because of chronic pain. She is having some pain in her low back. She has undergone epidural steroid injections in the past and gleaned some benefits from these. At this juncture, she has two pains. She has a pain in the low back area, which has been treated with epidural steroid injections in the past. At this point, that is reasonably stable. She has had some worsening of pain with certain activities such as sitting, standing, and other activities. She has a second pain, which involves her mouth. She states that she has gone to the dentist. Some procedure has been performed to remove some tissue. She states that she has developed keloids in in the area of her jaw. She states that this pain is quite problematic. That is the one that is giving her the most problem at this juncture. She is using lidocaine-type medications to help quell the pain in her mouth. She has returned today with the hopes of receiving renewal of her medications. Denies any new problems with bowel or bladder dysfunction. She feels that her pain is 20-30% improved with the current use of her medications. ALLERGIES: COMPAZINE, ERYTHROMYCIN, HIGH DOSE NONSTEROIDAL ANTI-INFLAMMATORY. MEDICATIONS: Clonazepam 1 mg, Flexeril 10 mg t.i.d., hydrocodone 5 mg 1 p.o. t.i.d., magnesium 400 mg, Linzess 145 mg, amitriptyline 25 mg at bedtime, Biofreeze. PAIN CLINIC ASSESSMENT AND PQRS: 1. The patient is not being treated for osteoarthritis or rheumatoid arthritis. 2. Height 5 feet 7 inches, weight 152 pounds, BMI is 23.9. 3. Vital signs: Blood pressure 105/71, heart rate 98, respiratory rate 16, room air saturation 98%, temperature 98.4. 4. Pain intensity: 4/10 5. Fall history: The patient has not fallen in the last 3 months. 6. Blood thinner: The patient is not on a blood thinning medication. 7. Hypertension: The patient is not being treated for hypertension. 8. Opioids greater than 6 weeks: The patient receives her medications from one source from pain Clinic. 9. Risk assessment tool: [place] [address] PAIN MANAGEMENT CONSULTATION Name: ARSALAN,GENESIS Gutierrez Room: [facility]#: [id number] Admission: 02/03/19 Attend Phys: Sandoval Cisneros MD Discharge: Date of : 89 Report #: [id number] 10. Functional assessment tool. 11. Recreational drug use: The patient denies use of recreational drugs. 12. Tobacco: The patient denies use of drugs or tobacco. 13. Alcohol: The patient rarely drinks alcoholic beverages. PHYSICAL EXAMINATION: GENERAL: The patient is a well-developed, well-nourished, white female. Appears her stated age. She is alert and oriented x 3. Her affect is appropriate. Speech is fluent. HEENT: Normocephalic, atraumatic. Extraocular eye muscles intact. Sclerae nonicteric. The patient has some pain and discomfort with soreness on the right side of her mouth, status post surgery with tissue removal. The patient is now with development of keloid-like lesion. NECK: Without adenopathy or JVD. HEART: Regular rate. ABDOMEN: Nontender. Bowel sounds present. MUSCULOSKELETAL: The patient is without scoliosis, kyphosis or lordosis. Upper extremity muscle strength is judged to be 5/5 for the major muscle groups in the upper extremity. Lower extremity muscle strength is judged to be 5-/5 for the lower muscle areas. The patient has history of lumbar radicular pain in the L5-S1 in the L5 dermatomal distribution. IMPRESSION: 1. History of fibromyalgia. 2. Myofascial pain. 3. Chronic back pain. 4. Chronic constipation. 5. History of myofascial pain, treated with trigger point injection. 6. Chronic headaches. 7. Oral pain, status post tissue removal with development of keloids. RECOMMENDATIONS: We discussed treatment options with the patient. At this juncture, we will continue with her medications. She feels that the amitriptyline medication is working reasonably well. She does not have any particular problem with that. She is sleeping better. She has found that it seems to be helpful with the pain. She is having more pain and discomfort in the mouth area. She states that she is using some Lidoderm-type medications because of the pain in her mouth with keloid and the keloid discomfort. We will continue with her current medical regimen of narcotic medications, amitriptyline, Flexeril, and clonazepam. We will continue with the management with the hope of continuing to improve her situation. She will follow up in the future. She will call us if she should need. We will consider increase in her amitriptyline to 35 mg at bedtime in the future should she need. We will also consider if other options might be available to help [place] [address] PAIN MANAGEMENT CONSULTATION Name: GENESIS ARRIAZA Room: [facility]#: [id number] Admission: 02/03/19 Attend Phys: Sandoval Cisneros MD Discharge: Date of : 89 Report #: [id number] We would like to thank you for letting us participate in her care. We hope she continues to improve. By: 1624 0219N. Christopher Cisneros MD /kamaljit
== END ==
LOC: M.PC 05:34
DX: M54.5 Low back pain (principal); R51 Headache; G89.29 Other chronic pain; K59.09 Other constipation; K13.79 Other lesions of oral mucosa; Z88.1 Allergy status to other antibiotic agents; Z88.8 Allergy status to other drugs, medicaments and biological substances; Z79.899 Other long term (current) drug therapy

== ENCOUNTER → 2019-03-10 | Outpatient (CLI) | payer OTHER ==
--- NOTE | ~2019-03-10 | PAINCON ---
[address] [address] PAIN MANAGEMENT CONSULTATION Name: GENESIS ARRIAZA Room: [facility] BETI AmorCarlito#: [id number] Admission: 03/10/19 Attend Phys: Sandoval Cisneros MD Discharge: Date of : 89 Report #: [id number] THIS REPORT FOR: //name// CC: Nuzhat Cisneros DATE OF SERVICE: 03/10/2019 FOLLOWUP COMPLAINT: Here for medication renewal. We are going to try to have another child. HISTORY: The patient is a 34-year-old female who has been followed in the pain clinic because of chronic pain. She has pain and discomfort, which continues to be problematic in her low back. She has had pain that radiates down into the posterior portion of her left leg. She has undergone epidural steroid injections and gleaned some benefit from these. Still has pain, which is problematic. She has undergone massages in the past. These were helpful initially. They are not as beneficial at this point. Feels that her medications continue to be helpful. Has some tightness and discomfort in the area of her neck. She has noticed that her hydrocodone as well as some of her other medication she is taking seemed to be somewhat less effective. Constipation is helped by using Linzess, but it still can be problematic. She does try to increase her fluid intake. She does have a frozen embryo, which is going to be transplanted in the future. She has returned today with the thought of having her medications renewed. She rates her pain as a 3/10. ALLERGIES: COMPAZINE, ERYTHROMYCIN, HIGH DOSE NONSTEROIDAL ANTI-INFLAMMATORY. MEDICATIONS: Clonazepam 1 mg, Flexeril 10 mg t.i.d., hydrocodone 5/325 one p.o. t.i.d., magnesium 400 mg, Linzess 145 mg, amitriptyline 25 mg at bedtime, and Biofreeze. PAIN CLINIC ASSESSMENT/PQRS: 1. The patient is not being treated for rheumatoid arthritis. She is not being treated for osteoarthritis. 2. Height 5 feet 7 inches, weight 159 pounds, BMI is 25. 3. Vital signs: Blood pressure 113/76, heart rate 94, respiratory rate 16, room air saturation 99%, temperature 98.2. 4. Pain intensity 3/10. 5. Fall history: The patient has not fallen in the last 3 months. 6. Blood thinner. The patient is not on a blood thinning medication. 7. Hypertension. The patient is not being treated for hypertension. 8. Opioids greater than 6 weeks. The patient receives her medications from one source, the pain clinic. 9. Risk assessment tool, [place] [address] PAIN MANAGEMENT CONSULTATION Name: GENESIS ARRIAZA Room: [facility]#: [id number] Admission: 03/10/19 Attend Phys: Sandoval Cisneros MD Discharge: Date of : 89 Report #: [id number] 10. Functional assessment tool. 11. Recreational drug use. The patient denies use of recreational drugs. 12. Tobacco: The patient denies use of tobacco. 13. Alcohol. The patient rarely drinks alcoholic beverages. PHYSICAL EXAMINATION: GENERAL: The patient is a well-developed, well-nourished white female. Appears her stated age. She is alert and oriented x 3. Her affect is appropriate. Speech is fluent. HEENT: Normocephalic, atraumatic. Extraocular eye muscles intact. Sclerae nonicteric. Mucous membranes are moist. NECK: Without adenopathy or JVD. HEART: Regular rate. S1, S2. ABDOMEN: Nontender. Bowel sounds present. The patient without significant scoliosis, kyphosis, or lordosis. EXTREMITIES: Upper extremity muscle strength is judged to be 5/5 for the major muscle groups in the upper extremity. Lower extremity muscle strength is judged to be 5/5 for the major muscle groups in the lower extremity. The patient has pain and discomfort with pain that radiates down into the low back area involving her left buttocks and sometimes down into the lower portion of her leg. IMPRESSION: 1. History of lumbar radiculopathy. 2. Fibromyalgia. 3. Myofascial pain. 4. Chronic back pain. 5. Chronic constipation. 6. History of myofascial pain treated with trigger point injections in the past. 7. Chronic headaches. 8. Contemplation of a frozen embryo placement. The patient states she has 15 embryos. The hope is that in the later portion falls. She will then undergo implantation and this would lead to a successful . RECOMMENDATIONS: We discussed the need to be off medication such as hydrocodone or any medications that would be problematic for the . She has had no problem with her medication. She is noticing that the pain medication as we have discussed previously might become less effective over a period of time secondary to intolerance. She does not feel that she is addicted. She continues to work with her . She will call us if she has any concerns. We would like to thank you for letting us participate in [place] [address] PAIN MANAGEMENT CONSULTATION Name: GENESIS ARRIAZA Room: [facility]#: [id number] Admission: 03/10/19 Attend Phys: Sandoval Cisneros MD Discharge: Date of : 89 Report #: [id number] continue to maintain the patient's pain control using complex medical management with use of opioids. By: 1015 1641N. Christopher Cisneros MD /WENDY
== END ==
LOC: M.PC 05:13
DX: M54.5 Low back pain (principal); G89.29 Other chronic pain; M79.7 Fibromyalgia; K59.00 Constipation, unspecified; M54.10 Radiculopathy, site unspecified

== ENCOUNTER 2019-06-23 19:22 | Emergency (ER) | payer OTHER ==
[~2019-06-23] VITALS: Ht 170.2 cm; Wt 77.1 kg
[2019-06-23 22:40] VITALS: BP 119/76
== END 2019-06-23 22:41 | disposition home or self-care (01) ==
LOC: M.ERS 19:22
DX: S61.411A Laceration without foreign body of right hand, initial encounter (principal); G43.909 Migraine, unspecified, not intractable, without status migrainosus; M19.90 Unspecified osteoarthritis, unspecified site; M79.7 Fibromyalgia; J45.909 Unspecified asthma, uncomplicated; F17.210 Nicotine dependence, cigarettes, uncomplicated; Z88.1 Allergy status to other antibiotic agents; Z88.6 Allergy status to analgesic agent; Z88.8 Allergy status to other drugs, medicaments and biological substances; W26.0XXA Contact with knife, initial encounter; Y93.89 Activity, other specified; Y92.89 Other specified places as the place of occurrence of the external cause; Y99.8 Other external cause status